=== PATIENT | female | born 1960 ===

== ENCOUNTER → 2024-04-28 10:48 | Outpatient (REF) | payer BC, SELFPAY ==
--- NOTE | 2024-04-28 12:26 | W.CON.GYNONC ---
Chief Complaint
-
vaginal mass . post menopausal bleeding
History of Present Illness
65�year�old postmenopausal woman referred to see me this AM by Dr Bui She presented to [facility] with lower abdominal cramps, difficulty voiding,
reported continuous serosanguineous vaginal discharge. Reported menopause 6 years ago. She was seen for the same complaints
in November 2023 however patient was having appendicitis and did not schedule visit for endometrial biopsy. Ultrasound of pelvis November
2023 shows uterus to be anteverted 18 x 8 x 10.7 cm, myometrium with multiple uterine fibroids. Endometrium was thickened at
24 mm. Cervix 7 nabothian cyst. Right and left ovaries were not seen.
CT abdomen pelvis December 26, 2023 which indicated findings consistent with acute perforated appendicitis. She did demonstrate
multiple uterine fibroids, no free fluid. Calcific densities are seen in the pelvis representing phleboliths. CT scan demonstrated on
April 22, 2024 at the time of her ER visit multiple uterine fibroids, largest measuring 5 cm, no free fluid, no acute intra�abdominal or
pelvic pathology otherwise. Pelvic exam per [facility] INSTALLATION ENGINEER consultation in the ER shows a prolapsed irregular mass with areas of necrosis
on x�ray compatible attaches to the cervix or vagina. There is discharge present.Please note that on April 24, 2024 patient was seen
in the office
she had office visit with crystal gazer , small biopsy done,
she has office visit with PCP this sunday
Medical History
Past Medical History
Past Medical History: Reports HTN
Past Surgical History: Reports Appendectomy
Social History
Tobacco: Former Smoker
Alcohol: None
Drug: None
Personal: Single
Living: With Family (son)
Employment: Employed (public accountant)
Family History
Family History: Reviewed & Not Pertinent
Allergies
Allergies reflect when allergies were last updated in [employer].
cephalexin [From Keflex] Allergy (Verified 04/28/24 11:50)
Unknown
steroids Allergy (Uncoded 04/28/24 11:50)
Unknown
Review of Systems
-
Constitutional: Reports No Symptoms
EENT: Reports No Symptoms
Respiratory: Reports No Symptoms
Cardiac: Reports No Symptoms
Abdomen/GI: Reports No Symptoms
: Reports Other (vaginal bleeding)
Musculoskeletal: Reports No Symptoms
Skin: Reports No Symptoms
Neurological: Reports No Symptoms
Endocrine: Reports No Symptoms
Hematologic/Lymphatic: Reports No Symptoms
Psych: Reports No Symptoms
Physical Exam
Physical Exam
General: Well Developed and Well Nourished
HEENT: Normocephalic
Respiratory: Clear
Cardiac: S1/S2 and Regular Rhythm
Breast: Other (bilateral breasts are normal, no masses, )
GI: Soft, Non Tender, No Hepatosplenomegaly and Other (obese)
External Genitalia: Normal Urethra and Other (6 cm partilly collapsed mass on a thin stalk sitting outside vagina between labia, now removed)
Vagina: Normal Mucosa and Other (vagina packed with kerlex gauze)
Cervix: Normal
Uterus: Enlarged
Adnexa: Not Palpable
Rectal: Normal Mucosa
Musculoskeletal: No Clubbing, No Cyanosis and No Edema
Neuro: Awake, Alert, Oriented and AO x 3
Hematologic/Lymphatic: No Lymphadenopathy
Psych: Calm and Intact Judgement
Data Reviewed
-
Total Time Spent with Patient (in minutes): 65
CT Scan: Image personally visualized and interpreted
Impression / Plan
-
After removal of the mass in the office she appears to have continued. The vagina was packed on 3 separate occasions with 4 x 4
gauze while the bleeding subsided, she still had significant ongoing bleeding.
I recommended the patient for to go to the emergency room at [facility] for possible admission.
I will recheck her labs including CT chest abdomen pelvis.
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 possible adenosarcoma.
I discussed with her that she will likely be to the operating room schedule for urgent surgery, this will include robotic
assisted total laparoscopic hysterectomy with bilateral salpingo�oophorectomy. I have called to the emergency room treatment but,
hospitalist service will see the patient as well. Operating room has been notified to be added to cases for tomorrow.
Need to transfuse to keep hgb>9.
== END ==
LOC: REG 10:48
PROVIDERS: ATTENDING PHYSICIAN Obstetrics & Gynecology Gynecologic Oncology
DX: N88.8 Other specified noninflammatory disorders of cervix uteri (principal)
CPT/HCPCS: 88305; 88341; 88342

== ENCOUNTER 2024-04-28 15:51 | Day surgery (SDC) | payer BC, SELFPAY ==
[2024-04-28] VITALS (23 sets, daily range): BP systolic 62–156; BP diastolic 45–89; BMI 50.8; BMI 52.7
[2024-04-28 12:59] LABS: % Basophils 0.7 % (0-2); % Eosinophils 1.7 % (0-6); % Immature Granulocytes 0.7 % (0-0.5); % Lymphocytes 15.7 % (20.5-51.1); % Monocytes 8.8 % (1.7-9.3); % Neutrophils 72.4 % (42.2-75.2); Absolute Basophils 0.1 10^3/uL (0-0.2); Absolute Eosinophils 0.1 10^3/uL (0-0.7); Absolute Immature Granulocytes 0.1 10^3/uL (0-0.05); Absolute Lymphocytes 1.2 10^3/uL (1.2-3.4); Absolute Monocytes 0.7 10^3/uL (0.1-0.6); Absolute Neutrophils 5.5 10^3/uL (1.4-6.5); Hematocrit 27.3 % (37.0-47.0); Hemoglobin 8.6 g/dL (12.0-16.0); Mean Corp Hgb Conc. 31.5 g/dL (33.0-37.0); Mean Corpuscular Hgb 20.7 pg (27.0-31.0); Mean Corpuscular Volume 65.6 fL (81.0-99.0); Nucleated Red Blood Cells % 0 %; Platelet Count 303 10^3/uL (130-400); Red Blood Cell Count 4.16 10^6/uL (4.20-5.40); Red Cell Dist. Width 21.2 % (11.5-14.5); White Blood Cell Count 7.6 10^3/uL (4.8-10.8)
[2024-04-28] MEDS: NSS 1000 IV ×2 (13:15→17:23)
[2024-04-28 13:18] LABS: ALT (SGPT) 14 U/L (0-35); AST (SGOT) 19 U/L (14-36); Albumin 3.7 g/dl (3.5-5.0); Alkaline Phosphatase 97 U/L (38-126); Blood Urea Nitrogen 11 mg/dl (7-17); Carbon Dioxide 26 mmol/L (22-30); Chloride 103 mmol/L (98-107); Estimated Creatinine Clearance 71 ml/min; Glucose 138 mg/dl (70-99); Potassium 4.6 mmol/L (3.5-5.1); Sodium 134 mmol/L (135-145); Total Bilirubin 0.2 mg/dl (0.2-1.3); eGFR 56.81
--- NOTE | 2024-04-28 13:36 | ED.GENMED ---
History of Present Illness
General
Chief Complaint: Vaginal Bleeding
Source: patient
Exam Limitations: none
Time Seen by Provider: 04/28/24 11:56
Nursing documentation reviewed up to this point in time: agreed with
History of Present Illness
History of Present Illness:
64-year-old female presenting to the emergency department from gynecology after she had a mass removed from her vagina concern to have ongoing bleeding she was sent in for further assessment and likely OR for further evaluation of features
concerning for sarcoma. Denies any lightheadedness chest pain shortness of breath.
Review of Systems
Review of Systems
Allergies reviewed?: Yes
All Other Systems: ROS reviewed and negative except as documented in HPI and ROS
Phy Exam
Physical Exam
Physical Exam:
GENERAL: Alert , in no apparent distress
EYE: pupils equal and reactive
NECK: Supple, no significant adenopathy.
ENT: o/p clr, mmm.
CARDIAC: Regular rate and rhythm .
LUNGS: Clear breath sounds bilaterally, no acute respiratory distress, no wheezes/rales/rhonchi
ABDOMEN: Soft, without focal tenderness, no r/g, no cvat
NEUROLOGICAL: Alert and oriented, no focal neuro deficits
SKIN: Warm and dry, skin intact.
MUSCULOSKELETAL: No edema, well perfused.
PSYCH: Normal and appropriate interaction.
Course
Orders/Labs/Results
Orders:
Orders
04/28/24 11:56
0.9% Sodium Chloride 1000 ml [Nss] 1,000 ml IV BOLUS
04/28/24 11:57
Urinalysis Reflex To Culture Urgent
Specimen Description:
04/28/24 12:51
Type+Screen Urgent
Complete Blood Count/With Diff Urgent
Comprehensive Metabolic Panel Urgent
Abnormal Lab Results
04/28/24
12:51
RBC 4.16 L 10^6/uL
(4.20-5.40)
Hgb 8.6 L g/dL
(12.0-16.0)
Hct 27.3 L %
(37.0-47.0)
MCV 65.6 L fL
(81.0-99.0)
MCH 20.7 L pg
(27.0-31.0)
MCHC 31.5 L g/dL
(33.0-37.0)
RDW 21.2 H %
(11.5-14.5)
Abs Immat Gran (auto) 0.1 H 10^3/uL
(0-0.05)
Absolute Monos (auto) 0.7 H 10^3/uL
(0.1-0.6)
Immature Gran % 0.7 H %
(0-0.5)
Lymphocytes % 15.7 L %
(20.5-51.1)
Sodium 134 L mmol/L
(135-145)
Creatinine 1.1 H mg/dL
(0.6-1.0)
Glucose 138 H mg/dl
(70-99)
Total Protein 6.0 L g/dl
(6.3-8.2)
04/28/24 12:51
04/28/24 12:51
Vital Signs
Initial and Last Documented VS:
Initial Vital Signs
Temp Pulse Resp BP Pulse Ox
97.8 F 108 18 132/89 97
04/28/24 11:45 04/28/24 11:45 04/28/24 11:45 04/28/24 11:45 04/28/24 11:45
Last Documented Vital Signs
Temp Pulse Resp BP Pulse Ox
97.8 F 88 16 101/70 97
04/28/24 11:45 04/28/24 13:30 04/28/24 13:30 04/28/24 13:30 04/28/24 13:30
MDM/Problems Addressed
MDM/Problems Addressed:
64-year-old female presenting to the emergency department via gynecology. Gynecology directly reached out to the ER with plans to admit and likely OR. Here patient is stable in no distress hemoglobin is 8.6 but no old for comparison type and
screen was sent will be admitted for further assessment and gynecology care.
*Critical Care Note
Total Time (30-74mins, 75-104mins- exclusive of procedures): Not Applicable
ED Attending Note
-
Portions of this chart may have been created with voice recognition software.� Occasional wrong word or��sound alike� substitutions may have occurred due to the inherent limitations of voice recognition software.
Discharge Plan
Departure
Patient Disposition: Admit
Date of Disposition: 04/28/24
Time of Disposition: 13:42
Admit to: Med/Surg
Admit to doctor: Gonzalez
Presentation/result/management discussed w/ accepting MD/DO: Hospitalist
Patient with high blood pressure during this ER visit?: No
Condition: Good
Covid-19: Not Applicable
Discharge Problem:
Vaginal bleeding
Referrals:
UNKNOWN - PT DOES,NOT KNOW [Family Provider] -
Interventions
Interventions:
*Risk Screen - Suicide Last Done: 04/28/24 12:18
*General Assessment Last Done: 04/28/24 11:45
*Neglect/Abuse Screening Last Done: 04/28/24 12:18
ED- Fall Risk Assessment Last Done: 04/28/24 12:18
*ED COVID-19 Vaccine History Last Done: 04/28/24 11:45
ED-Female Genitourinary Assessment Last Done: 04/28/24 13:15
Discharge Date and Time
Print Language: UKRAINIAN
--- NOTE | 2024-04-28 14:56 | HPS.HSE ---
Family Physician
-
Family Physician: Rigoberto Darden Jr., DO
Chief Complaint
-
continued vaginal bleeding
History of Present Illness
64 yo female, menopausal, now presents for ongoing vaginal bleeding. Was seen 04/22 at [facility] ER for similar complaints. At that time, had mass that was prolapsing through the vagina and was between her legs. Mass was removed this morning
by Dr. Patel but has had continous bleeding. Of note, has had ongoing bleeding since November and initially was diagnosed with Leiomyoma, although due to being menopausal, sarcoma is possibility. ASSISTANT DISTRICT ATTORNEY/ONC requesting admission for HgB evaluation due
to bleeding and possibly transfusions, along with ttaking her to the OR tomorrow for further evaluation. Patient blood pressure 65/46 in the ED upon movign to the chair, diaphoretic - orthostatic positive. Will transfuse 2u prbc.pulse 84,
respiratory rate 20. Hemoglobin 8.6, unclear baseline, sodium 134, creatinine 1.1 once again unclear baseline.
Medical History
Past Medical History
Past Medical History: Reports Other
Additional Past Medical History:
Menopausal
Past Surgical History: Reports None
Social History
Tobacco: Non-smoker
Drug: None
Family History
Family History: Not pertinent
Allergies / Home Medications
Allergies reflects when Allergies were last updated in [employer].
Home Medications with original date entered in [employer]
Allergy/Medication List:
Allergies
Allergy/AdvReac Type Severity Reaction Status Date / Time
cephalexin [From Keflex] Allergy Unknown Verified 04/28/24 11:50
steroids Allergy Unknown Uncoded 04/28/24 11:50
Home Medications
metronidazole 500 mg tablet 500 mg PO BID 04/28/24
sulfamethoxazole 800 mg-trimethoprim 160 mg tablet (Bactrim DS) 1 tab PO BID 04/28/24
Review of Systems
-
A 12 point ROS was completed and negative except as noted: Yes
Physical Exam
Vital Signs
Vital Signs
Temp Pulse Resp BP Pulse Ox
97.8 F 84 20 111/71 99
04/28/24 11:45 04/28/24 14:28 04/28/24 14:28 04/28/24 14:28 04/28/24 14:28
Physical Exam
General: Well Developed
HEENT: NormoCephalic
Respiratory: Clear
Cardiac: S1/S2
GI: Soft, Non Tender and Non Distended
Musculoskeletal: No Clubbing
Neuro: Awake, Alert, Oriented and AO x 3
Hematologic/Lymphatic: No Lymphadenopathy
Psych: Calm
Laboratory Results
-
04/28/24 12:51
04/28/24 12:51
Laboratory Results
Total Bilirubin 0.2 mg/dl (0.2-1.3) 04/28/24 12:51
AST 19 U/L (14-36) 04/28/24 12:51
ALT 14 U/L (0-35) 04/28/24 12:51
Alkaline Phosphatase 97 U/L (38-126) 04/28/24 12:51
Data Reviewed
-
Lab Data: Labs Reviewed by me
Impression/Plan
-
IMPRESSION:
64 yo female, menopausal, now presents for ongoing vaginal bleeding. Concern for Sarcoma.
PLAN:
#Vaginal Bleeding
-Orthostatic positive
-2u prbc now
-monitor CBC q8h, transfuse as necessary
-Repeat stat CBC
-HgB goal >7
-CT A/P with contrast to assess active bleed for possible embolization and stabilization
-OR tomorrow for further evaluation including possible sarcoma
-IMU v ICU depending on trajectory
#Hyponatremia
-mild
-ctm
DVT ppx
-SCDs
--- NOTE | 2024-04-28 15:13 | EDRN ---
Pt asking to sit in a chair at this time.
--- NOTE | 2024-04-28 15:28 | EDRN ---
Pt set up in room in green recliner chair at this time. Pt had had a diaper in place and diaper was saturated fully w/ blood.
--- NOTE | 2024-04-28 15:36 | EDRN ---
Addendum entered by Naomi Griffith RN 04/28/24 15:39:
Gonzalez Ortiz (spelled wrong below).
Original Note:
Hospitalist Dr. Sterling was in to see pt and has written orders for pt at this time.
--- NOTE | 2024-04-28 15:56 | EDRN ---
Pt's BP down to 62/46, sweaty, dizzy, and ghostly pale in chair at 1545. Dr Gonzalez Trejo in to see pt. Pt had saturated holly underneath of her in chair w/ blood. pt was moved to stretcher w/ assist of 4. pt was very weak and dizzy. pt had a BP
taken once in bed at calvin 15:50 and BP 108/71. CBC drawn. Justine VARELA got permit to administer blood and Dr. Roth said to hang 500 mL of wide open IVF of NSS.
[2024-04-28] MEDS: NSS 500 IV (16:05)
[2024-04-28 16:08] LABS: % Basophils 0.4 % (0-2); % Eosinophils 1.5 % (0-6); % Lymphocytes 20.5 % (20.5-51.1); % Monocytes 10.4 % (1.7-9.3); % Neutrophils 66.2 % (42.2-75.2); Absolute Eosinophils 0.1 10^3/uL (0-0.7); Absolute Immature Granulocytes 0.1 10^3/uL (0-0.05); Absolute Lymphocytes 1.9 10^3/uL (1.2-3.4); Absolute Monocytes 0.9 10^3/uL (0.1-0.6); Hematocrit 26.5 % (37.0-47.0); Hemoglobin 8.3 g/dL (12.0-16.0); Mean Corp Hgb Conc. 31.3 g/dL (33.0-37.0); Mean Corpuscular Volume 66.9 fL (81.0-99.0); Nucleated Red Blood Cells % 0.2 %; Platelet Count 333 10^3/uL (130-400); Red Blood Cell Count 3.96 10^6/uL (4.20-5.40); Red Cell Dist. Width 21.1 % (11.5-14.5); White Blood Cell Count 9.1 10^3/uL (4.8-10.8)
--- NOTE | 2024-04-28 16:11 | EDRN ---
Pt moved to room #36 at this time. Pt is awaiting results of tests, and pRBC for transfusion.
--- NOTE | 2024-04-28 16:46 | EDRN ---
Dr. Field verbally ordered healy catheter placement and TT'd he would place written order for healy catheter. Healy catheter #16 Fr placed at this time w/ 525 mL output. Catheter placement difficult related to packing in vagina.
--- NOTE | 2024-04-28 16:48 | EDRN ---
Laboy placed as pt unable to void w/ vaginal packing in place.
[2024-04-28 17:10] LABS: Urine Albumin Negative (Neg - Trace); Urine Bilirubin Negative (Negative); Urine Character Clear (Clear); Urine Color Yellow; Urine Glucose Negative (Negative); Urine Ketone 1+ (Negative); Urine Leukocyte Trace (Negative); Urine Nitrite Negative (Negative); Urine Occult Blood 1+ (Negative); Urine Specific Gravity 1.015 (<1.030); Urine Urobilinogen Negative (Neg - 1+)
[2024-04-28 17:29] LABS: Urine Mucus Few
[2024-04-28 17:30] LABS: Urine Bacteria Few (Negative); Urine Red Blood Cell 16-20 /HPF (0-2); Urine White Cell 0-2 /HPF (0-5)
--- NOTE | 2024-04-28 17:42 | W.PN.UPDATE ---
Update Note
Progress Note Update
- IR asked to see patient by hospitalist service in light of persistent vaginal bleeding and several episodes of hypotension this afternoon. Emergent CT ordered but not yet performed. Pt seen in IMU, currently seems to be much more comfortable. BP
130/80, HR 80. Being given IV fluid with two units PRBCs ordered. Did not have anything to eat or drink today, which in combination with bleeding seems to have contributed to episodes of orthostasis.
- Will follow up when CT is done but at present do not think any emergent IR intervention ([place]) indicated.
--- NOTE | 2024-04-28 19:20 | PTCARENOTE ---
Admitted to 3348, Admission completed Imu monitors placed. BP 135/68, SR 80- IV Bolus given via RAC int. LC [address] with clear yellow urine- gauze noted bulmaro area- with sanguineous drainage. D/w provider- clarified 1 unit PRBC to
be given now. Taken to CT scan- she remains NPO- tray ordered but will wait to see if intervention is to take place.
--- NOTE | 2024-04-28 19:23 | PTCARENOTE ---
Patient back from CT scan, BP stable while laying, Laboy patent for clear yellow urine. Inspected bulmaro area since patient stated she felt like she was bleeding during ct scan. Bulmaro area clear of blood. [facility] called to [facility] second IV for blood
transfusion since RAC PIV is leaking.
[2024-04-28 20:53] LABS: INR 1.25; PT 15.5 Sec (11.4-14.6)
--- NOTE | 2024-04-28 22:10 | PTCARENOTE ---
Patient with multiple questions in regards to surgery, overnight provider notified and Dr. Patel notified and spoke with patient via cell phone.
[2024-04-29] VITALS (27 sets, daily range): BP systolic 131–167; BP diastolic 66–105; BMI 52.5
[2024-04-29 02:23] LABS: Hematocrit 24.5 % (37.0-47.0); Hemoglobin 8.2 g/dL (12.0-16.0)
--- NOTE | 2024-04-29 02:32 | PTCARENOTE ---
Provider notified of 0200 hgb value, scant dry noe blood on bulmaro pad, vaginal packing remains intact with dried blood. No sign of excessive bleeding.
[2024-04-29 09:46] LABS: INR 1.18; PT 14.8 Sec (11.4-14.6)
[2024-04-29 09:47] LABS: APTT 30.3 Sec (23.4-35.0)
--- NOTE | 2024-04-29 10:00 | W.PN.GYNONC ---
Today's Communication
-
plan- pre op orders placed planned robotic assisted TLH and BSO today
Impression / Plan
-
vaginal bleeding- fibroid uterus- will process with Robotic Assisted laparoscopic total hysterectomy with BSO explained to patient procedure and all questions answered
anemia- today labs pending
Subjective / Interval History
-
Hospital day 1 - 64 yr old white female admitted for heavy vaginal bleeding Feeling ok the this morning Still having vaginal pressure and some cramping Occasional still feeling some trickle of blood vaginally. Did receive second unit of blood
last night
Objective Data
-
Lab Results:
awaiting morning lab results
Physical Exam
Vital Signs / I&O
Vitals
Temp Pulse Resp BP Pulse Ox
98.3 F 88 19 131/105 98
04/29/24 05:54 04/29/24 07:00 04/29/24 07:00 04/29/24 07:00 04/28/24 17:00
I&O
04/27/24 04/28/24 04/29/24 04/30/24
06:59 06:59 06:59 06:59
Intake Total 500 / 500
Output Total 750 / 750
Balance -250 / -250
Physical Exam
VSS
aefrile
abdomen soft some pelvic tenderness
vaginal packing left in
Data Reviewed
-
CT Scan: Discussed with Physician and Discussed with Patient
[2024-04-29 10:08] LABS: ALT (SGPT) 13 U/L (0-35); AST (SGOT) 21 U/L (14-36); Albumin 3.6 g/dl (3.5-5.0); Alkaline Phosphatase 96 U/L (38-126); Blood Urea Nitrogen 10 mg/dl (7-17); Calcium 8.9 mg/dl (8.4-10.2); Carbon Dioxide 22 mmol/L (22-30); Chloride 106 mmol/L (98-107); Estimated Creatinine Clearance 87 ml/min; Glucose 110 mg/dl (70-99); Magnesium 2.3 mg/dl (1.6-2.3); Potassium 4.7 mmol/L (3.5-5.1); Sodium 135 mmol/L (135-145); Total Bilirubin 0.4 mg/dl (0.2-1.3); Total Protein 5.9 g/dl (6.3-8.2); eGFR > 60.00
[2024-04-29] MEDS: HEPARIN 5000 UNITS SC (10:13)
[2024-04-29] MEDS: CELEBREX 200 MG PO (10:24)
[2024-04-29 10:31] LABS: Hematocrit 28.9 % (37.0-47.0); Hemoglobin 9.5 g/dL (12.0-16.0); Mean Corp Hgb Conc. 32.9 g/dL (33.0-37.0); Mean Corpuscular Hgb 22.2 pg (27.0-31.0); Mean Corpuscular Volume 67.7 fL (81.0-99.0); Red Blood Cell Count 4.27 10^6/uL (4.20-5.40); Red Cell Dist. Width 22.6 % (11.5-14.5); White Blood Cell Count 8.2 10^3/uL (4.8-10.8)
--- NOTE | 2024-04-29 13:15 | PTCARENOTE ---
Patient sent to OR with Flagyl and Ancef in chart per orders.
--- NOTE | 2024-04-29 14:28 | W.PN.HOSP.TC ---
Today's Communication/Plan
-
OR for robotic assisted TLH and BSO today
monitor cbc
Assessment / Plan
Assessment / Plan
Physical Exam
General: Well Developed
HEENT: NormoCephalic
Respiratory: Clear
Cardiac: S1/S2
GI: Soft, Non Tender and Non Distended
Musculoskeletal: No Clubbing
Neuro: Awake, Alert, Oriented and AO x 3
Hematologic/Lymphatic: No Lymphadenopathy
Psych: Calm
#Vaginal Bleeding
#Acute Blood Loss Anemia
-Orthostatic positive
-s/p 2u prbc
-robotic assisted TLH and BSO today
-monitor CBC, transfuse as necessary
-HgB goal >7
-Further imaging per battery starter/onc
#Hyponatremia
-mild
-ctm
-resolved
DVT ppx
-SCDs
Anticipated Discharge: Within 24 hours
Subjective/Interval History
-
Date of Service: April 29, 2024
no acute events
Objective Data
-
Labs:
Laboratory Results
04/29/24
09:28
WBC 8.2
Hgb 9.5 L
Hct 28.9 L
Plt Count
PT 14.8 H
INR 1.18
APTT 30.3
Sodium 135
Potassium 4.7
Chloride 106
Carbon Dioxide 22
BUN 10
Creatinine 0.9
Glucose 110 H
Calcium 8.9
Total Bilirubin 0.4
AST 21
ALT 13
Alkaline Phosphatase 96
Vital Signs:
Vital Signs
Temp Pulse Resp BP Pulse Ox
98.2 F 76 19 158/84 98
04/29/24 11:22 04/29/24 13:00 04/29/24 13:00 04/29/24 13:13 04/28/24 17:00
I&O
04/28/24 04/29/24 04/30/24
06:59 06:59 06:59
Intake Total 500 / 500
Output Total 750 / 750
Balance -250 / -250
Review of Systems
-
History Source: Patient
All other systems: Not reviewed unless documented
Data Reviewed
-
CT Scan: Image personally visualized and interpreted and Report Reviewed by me
Labs: Labs Reviewed by me
--- NOTE | 2024-04-29 16:34 | CM ---
Patient with Dx vaginal bleeding. Plan OR for robotic assisted TLH and BSO today.
Attempted to meet with patient who was off the unit for surgery.
Spoke with patient's Glenn;
the patient resides with her in a 1 story house.
The patient has been independent in ADLs and ambulation.
Glenn volunteers that the patient had been planning to start a new job this week.
The patient has no DME or prior VN.
PCP - Rigoberto Darden
Pharmacy - [facility]
CM will continue to follow.
Plan home.
--- NOTE | 2024-04-29 16:51 | OR.RPT ---
Operative Report
Operative Report
Date of surgery April 29, 2024
Preoperative diagnosis acute blood loss anemia, postmenopausal bleeding, multiple uterine leiomyoma, prolapsing cervical mass
Postoperative diagnosis: Multiple uterine leiomyoma, multiple endometrial polyps, small residual cervical mass
Operative procedure:
Robotic assisted total laparoscopic hysterectomy, bilateral salpingo-oophorectomy, uterine weight greater than 250 g [id number]
Extensive enterolysis
Mini laparotomy for extraction of specimen
Surgeon:Giovanny Patel MD
Assist: Maged Garibay PA-C
EBL: 250 cc
Anesthesia: General endotracheal intubation
Complication: None
Procedure in detail. This patient was brought to the operating room for the above-mentioned procedure. She was seen in the office yesterday and had a prolapsing mass through the vagina that was partially collapsed and fleshy like, the mass was
twisted and came off and submitted to pathology and frozen section was a benign endocervical polyp although additional sections are necessary for definitive diagnosis. The patient had subsequent acute blood loss anemia and vaginal bleeding that did
not respond to procedures in the office and required hospitalization. Overnight the patient was admitted to the ICU and she did receive 2 units of packed red blood cells, stabilized for surgery today.
Upon arrival to the operating room she was placed in supine position general anesthesia was administered and she was intubated without any difficulty. Arms were wrapped in foam and placed along the patient's side properly, legs were placed in
lithotomy position using yellowfin stirrups. Vaginal packing and multiple blood clots were removed her established Laboy was removed. The patient was prepped and draped on the abdomen perineum and vagina lower abdomen and upper thighs. She was
draped timeout procedure was carried out she had received 3 g of Ancef and 500 mg of Flagyl. The patient had Laboy catheter replaced under sterile conditions for drainage of the bladder. I was unable to visualize her cervix and I was able to grasp
it by palpation on the anterior lip and the cervical canal was dilated and I did place a uterine manipulator crab steamer type with 3.0 cm TRACY ring around the cervix. Next we turned our attention abdominally where Veress needle was inserted below the
left subcostal margin, insufflation with CO2 gas was performed up to pressure of 15 mmHg. Next 8 mm X Xi robotic ports were placed 25 cm cephalad to symphysis pubis into the peritoneal cavity and under direct visualization 8 mm robotic ports were
placed in the right and left lateral abdomen and right and left upper abdomen. I did use EndoShears to lyse adhesions of the omentum to the anterior abdominal wall before we could visualize placing all the ports. Upper abdomen including liver
stomach omentum spleen and diaphragms were unremarkable. The patient was placed in 30 degree Trendelenburg and the robotic system was docked. We noted that there were a lot of filmy adhesions around the uterus and adnexa secondary to some type of
a prior inflammatory process and all these were taken down, multiple leiomyomas were present. I opened the broad ligament and identified the infundibulopelvic ligaments and both of these were isolated and the course of the ureter was visualized in
the retroperitoneum these were sealed with vessel sealer and divided both round ligaments were sealed and divided tubes and ovaries were left attached to the uterus, I was able to skeletonize uterine arteries bilaterally and then we sealed the
uterine vessels on both sides using vessel sealer. Circumferential incision was made over the TRACY ring using monopolar cautery until the cervix was detached. I felt like there was thick tissue on the posterior aspect of the vagina and maybe a
portion of the cervix had been left behind and this was excised and separately submitted through the vagina to pathology. The size of the uterus was too large for retrieval through the vagina and hence a 15 mm bag was introduced through the vagina
in the abdomen and the specimen was placed within it. Next the vaginal cuff was closed with 0 Vicryl suture ligature at both apices incorporating uterosacral ligament. V-Loc suture was used to close the vaginal cuff in a bidirectional fashion.We
irrigated the pelvis copiously and removed any residual blood clots and all pedicles appeared to be hemostatic.
Following this I turned my attention abdominally, in the lower abdomen approximately 3 fingerbreadths above symphysis pubis an 8 cm transverse incision in the skin was carried out, this was taken down to the level of the fascia and opened, rectus
muscles were and peritoneum was entered. The bag containing the uterus cervix bilateral tubes and ovaries were retrieved through this and submitted for frozen section. In the meantime the fascia was closed with STRATAFIX suture starting
from both ends coming to the center and going back to the corner in 2 layers. Subcutaneous tissue was closed with 2-0 Monocryl suture. All laparoscopic ports were closed with 4-0 Monocryl suture at the level of the skin. We injected all incisions
with bupivacaine.
I went to pathology and looked at the specimen and note that there is residual endocervical stump from where the mass had been previously removed. Multiple leiomyomas present. Endometrium is generally benign appearing and multiple endometrial
polyps are present. There was no indication to perform any staging procedures. Patient was awakened extubated and Laboy catheter was removed she was sent to recovery room stable awake and extubated condition counts of laps instruments and needle
was correct x 2. I was present and scrubbed for entire procedure as dictated above.
Disposition: To PACU, awake alert extubated
--- NOTE | 2024-04-29 18:01 | PTCARENOTE ---
Gave report to NEISHA Anderson on . Pt's belongings including laptop, 2 cell phones with chargers, backpack, clothes bag and blanket were sent to room 2113.
[2024-04-29 18:27] LABS: Blood Urea Nitrogen 12 mg/dl (7-17); Calcium 8.2 mg/dl (8.4-10.2); Carbon Dioxide 21 mmol/L (22-30); Chloride 104 mmol/L (98-107); Estimated Creatinine Clearance 98 ml/min; Glucose 138 mg/dl (70-99); Potassium 5.3 mmol/L (3.5-5.1); Sodium 133 mmol/L (135-145); eGFR > 60.00
--- NOTE | 2024-04-29 18:41 | PTCARENOTE ---
Pt arrived to [facility] from PACU s/p total hysterectomy w/ b/l salpingoopherectomy. Pt on 2L NC satting 96%, IVF infusing at 40mls/hr, 5 lap incisions all C/D/I and SAMIRA. Pt oriented to call curry and room, bed locked in lowest position, call curry
within reach.
[2024-04-29 19:38] LABS: Hematocrit 28.7 % (37.0-47.0); Hemoglobin 9.7 g/dL (12.0-16.0)
[2024-04-29] MEDS: LOVENOX 40 MG SC (20:23)
[2024-04-29] MEDS: TYLENOL 1000 MG PO (23:22)
[2024-04-30 04:10] VITALS: BP 136/74
[2024-04-30] MEDS: TYLENOL 1000 MG PO ×2 (05:10→11:43)
[2024-04-30 07:24] VITALS: BP 129/70
[2024-04-30] MEDS: CELEBREX PO (08:01)
--- NOTE | 2024-04-30 09:27 | PN.CDI ---
CDI
- -
CDI:
Physician Documentation Request
Admit Date: 04/28/24 15:51
Dear Doctor Rashida,
Please review the following and provide your response in the progress notes.
Clinical Indicators:
Height: 5'3
Weight: 296lbs
BMI: 52.5
If possible, please provide an associated diagnosis related to the abnormal BMI, such as:
Morbid obesity
BMI is not significant
Other
Use of terms such as suspected, likely, concern for, or probable (associated with a specific diagnosis that is being evaluated, monitored, or treated as if it exists) are acceptable and can be coded in the inpatient setting, when documented at the
time of discharge.
Thank you,
Wyatt Rutherford RN
CDI Specialist
Please use your independent medical judgment in providing your response.
--- NOTE | 2024-04-30 10:01 | W.PN.GYNONC ---
Today's Communication
-
can be discharge to home pending medical approval
Impression / Plan
-
POD 1 s/p robotic assisted TLH and BSO for vaginal bleeding and prolapsing endocervical mass
recovering well
plan discussed with Dr Patel
oob ambulate
continue motrin and tylenol for pain every 6 hrs for 72 hrs
regular diet
can be discharge to home with outpatient follow up in 2 wks
Subjective / Interval History
-
POD 1 s/p robotic assisted TLH BSO minilaparotomy for vaginal bleeding and prolapsing endocervical mass. No complaints feeling better out of bed to bathroom feels leg swelling has improved tolerating liquids will start regular diet with breakfast.
Objective Data
-
Lab Results:
today labs still pending
path still pending
Physical Exam
Vital Signs / I&O
Vitals
Temp Pulse Resp BP Pulse Ox
98.2 F 80 16 129/70 96
04/30/24 07:24 04/30/24 07:24 04/30/24 07:24 04/30/24 07:24 04/30/24 08:00
I&O
04/28/24 04/29/24 04/30/24 05/01/24
06:59 06:59 06:59 06:59
Intake Total 500 / 500 1030 / 1030
Output Total 750 / 750
Balance -250 / -250 1030 / 1030
Physical Exam
VSS
abdomen soft nondistended incisions closed and healing well
extremities- swelling and edema still present but patient states feels better
[2024-04-30 10:19] LABS: % Basophils 0.3 % (0-2); % Eosinophils 0.1 % (0-6); % Immature Granulocytes 2.3 % (0-0.5); % Lymphocytes 10.6 % (20.5-51.1); % Monocytes 8.1 % (1.7-9.3); % Neutrophils 78.6 % (42.2-75.2); ALT (SGPT) 13 U/L (0-35); AST (SGOT) 31 U/L (14-36); Absolute Immature Granulocytes 0.3 10^3/uL (0-0.05); Absolute Lymphocytes 1.4 10^3/uL (1.2-3.4); Albumin 3.3 g/dl (3.5-5.0); Alkaline Phosphatase 81 U/L (38-126); Blood Urea Nitrogen 13 mg/dl (7-17); Calcium 8.6 mg/dl (8.4-10.2); Carbon Dioxide 26 mmol/L (22-30); Chloride 104 mmol/L (98-107); Estimated Creatinine Clearance 98 ml/min; Glucose 102 mg/dl (70-99); Hematocrit 25.6 % (37.0-47.0); Hemoglobin 8.3 g/dL (12.0-16.0); Mean Corp Hgb Conc. 32.4 g/dL (33.0-37.0); Mean Corpuscular Hgb 22.8 pg (27.0-31.0); Mean Corpuscular Volume 70.3 fL (81.0-99.0); Mean Platelet Volume 9.9 fL (7.4-10.4); Nucleated Red Blood Cells % 0.4 %; Platelet Count 280 10^3/uL (130-400); Red Blood Cell Count 3.64 10^6/uL (4.20-5.40); Red Cell Dist. Width 22.3 % (11.5-14.5); Sodium 134 mmol/L (135-145); Total Bilirubin 0.4 mg/dl (0.2-1.3); White Blood Cell Count 12.8 10^3/uL (4.8-10.8); eGFR > 60.00
[2024-04-30 10:31] LABS: Potassium 4.7 mmol/L (3.5-5.1); Total Protein 5.4 g/dl (6.3-8.2)
[2024-04-30 10:51] LABS: Anisocytosis 1+; Normal RBC Morphology No
[2024-04-30 10:52] LABS: Ovalocytes Slight; Polychromasia Slight
[2024-04-30 11:34] VITALS: BP 162/74
--- NOTE | 2024-04-30 11:43 | W.PN.HOSP.TC ---
Addendum entered and electronically signed by Gonzalez Field MD 04/30/24 15:14:
[id number]
Original Note:
Today's Communication/Plan
-
-F/u SERVICE ASSOCIATE/ONC and CBC, BMP outpatient
-continue motrin and tylenol for pain every 6 hrs for 72 hrs
F/u bx outpatient
Assessment / Plan
Assessment / Plan
Physical Exam
General: Well Developed
HEENT: NormoCephalic
Respiratory: Clear
Cardiac: S1/S2
GI: Soft, Non Tender and Non Distended
Musculoskeletal: No Clubbing
Neuro: Awake, Alert, Oriented and AO x 3
Hematologic/Lymphatic: No Lymphadenopathy
Psych: Calm
#Vaginal Bleeding
#Acute Blood Loss Anemia
-s/p 2u prbc
-POD 1 s/p robotic assisted TLH and BSO for vaginal bleeding and prolapsing endocervical mass
-No bleeding evidence in the OR
-F/u outpatient bx results
-monitor CBC, transfuse as necessary
-HgB goal >7
-Further imaging per nursery supervisor/onc
-F/u SERVICE ASSOCIATE/ONC and CBC outpatient
-continue motrin and tylenol for pain every 6 hrs for 72 hrs
#Hyponatremia
-mild
-ctm
-f/u bmp outpatient
DVT ppx
-SCDs
More than 30 minutes spent in discharge including
Final examination of the patient
Summarizing hospital stay
Instructions for continuing care to all relevant caregivers
Preparation of discharge records, prescriptions, and referral forms
Total time spent (35 in minutes):
Anticipated Discharge: Today
Subjective/Interval History
-
Date of Service: April 30, 2024
no further bleeding post op
Objective Data
-
Labs:
Laboratory Results
04/30/24
09:42
WBC 12.8 H
Hgb 8.3 L
Hct 25.6 L
Plt Count 280
Sodium 134 L
Potassium 4.7
Chloride 104
Carbon Dioxide 26
BUN 13
Creatinine 0.8
Glucose 102 H
Calcium 8.6
Total Bilirubin 0.4
AST 31
ALT 13
Alkaline Phosphatase 81
Vital Signs:
Vital Signs
Temp Pulse Resp BP Pulse Ox
98.4 F 83 16 162/74 100
04/30/24 11:34 04/30/24 11:34 04/30/24 11:34 04/30/24 11:34 04/30/24 11:34
I&O
04/29/24 04/30/24 05/01/24
06:59 06:59 06:59
Intake Total 500 / 500 1030 / 1030
Output Total 750 / 750
Balance -250 / -250 1030 / 1030
Review of Systems
-
History Source: Patient
All other systems: Not reviewed unless documented
Data Reviewed
-
CT Scan: Image personally visualized and interpreted and Report Reviewed by me
Labs: Labs Reviewed by me
--- NOTE | 2024-04-30 11:54 | W.DS.TRANS ---
DC Summary - [employer]
-
Discharge Instructions:
Discharge Diagnosis/Procedures
POD 1 s/p robotic assisted TLH and BSO for
vaginal bleeding and prolapsing endocervical
mass
Diet Low Fat,Regular
Blood Work cbc and bmp with pcp in 1 week
Others Tests biopsy results with Dr. Patel
Instructions:
Stand-Alone Forms:
Changes to Home Medications: Yes
Discharge Medications:
DC Medications w/original date entered in [facility]
acetaminophen 500 mg tablet (Tylenol Extra Strength) 1,000 mg (2 x 500 mg) PO Q6HPRN 3 days #20 tabs 04/30/24
ibuprofen 600 mg tablet 600 mg PO Q6HPRN 3 days #20 tabs 04/30/24
Home Medication Changes
acetaminophen 500 mg tablet (Tylenol Extra Strength) 1,000 mg (2 x 500 mg) PO Q6HPRN 3 days #20 tabs 04/30/24
ibuprofen 600 mg tablet 600 mg PO Q6HPRN 3 days #20 tabs 04/30/24
Pending Results: No
--- NOTE | 2024-04-30 12:05 | CM ---
Patient has been medically cleared for discharge to home with no additional skilled services. Patient has arranged for transport home.
== END 2024-04-30 13:27 | disposition home or self-care (01) ==
LOC: SDS 15:51
PROVIDERS: Obstetrics & Gynecology Gynecologic Oncology; Physician Assistant; Registered Nurse; ATTENDING PHYSICIAN Internal Medicine; EMERGENCY PHYSICIAN Emergency Medicine; FAMILY PHYSICIAN Family Medicine
DX: D25.9 Leiomyoma of uterus, unspecified (principal); N84.0 Polyp of corpus uteri; N88.9 Noninflammatory disorder of cervix uteri, unspecified
CPT/HCPCS: 58573; 88304; 88305; 88307; 88332; 74177; 80048; 80053; 81003; 81015; 83735; 85014; 85018; 85025; 85027; 85610; 85730; 86850; 86900; 86901; 86920; 88112; 88331; 96360; 99285; P9016; Q9967